=== PATIENT | male | born 1995 | race Caucasian/White ===

== ENCOUNTER 2018-08-11 22:14 | Emergency (ER) | payer SELFPAY ==
--- NOTE | 2018-08-11 23:02 | EDPHYS ---
Physician Documentation [facility] Name: Robert Fernandes Jr Age: 22 yrs Sex: Male : 1995 Arrival Date: 08/11/2018 Time: 22:18 Bed 17 Private MD: None, None ED Physician Ernesto Macedo HPI: 08/11 22:53 This 22 yrs old Male presents to ER via Ambulatory with complaints of jr8 Toothache. 22:53 The patient presents with pain. The problem is located in the mouth. Onset: The jr8 symptoms/episode began/occurred gradually, 4 month(s) ago, and became worse and became persistent. Duration: The symptoms are continuous. Modifying factors: The symptoms are alleviated by nothing, the symptoms are aggravated by air, chewing, cold fluids. Associated signs and symptoms: The patient has no apparent associated signs or symptoms. Severity of symptoms: At their worst the symptoms were moderate, in the emergency department the symptoms are unchanged. The patient has experienced a previous episode. The patient has been recently seen by a physician: the patient's primary care provider, with similar presenting complaints, was given a prescription for antibiotics, finished them about two weeks ago. Now has pain again. Still has not f/u with dentist . Historical: - Allergies: 22:38 No Known Allergies; rr5 - Home Meds: 22:38 None [Active]; rr5 - PMHx: 22:38 None; rr5 - PSHx: 22:38 None; rr5 - Immunization history:: Adult Immunizations up to date. - Social history:: Smoking status: Patient uses tobacco products, smokes one-half pack cigarettes per day, Patient uses alcohol, but reports only rare drinking. street drugs, marijuana. - Ebola Screening: : Patient negative for fever greater than or equal to 101.5 degrees Fahrenheit, and additional compatible Ebola Virus Disease symptoms Patient denies exposure to infectious person Patient denies travel to an Ebola-affected area in the 21 days before illness onset. ROS: 22:53 Eyes: Negative for injury, pain, redness, and discharge, Neck: Negative for injury, jr8 pain, and swelling, Cardiovascular: Negative for chest pain, palpitations, and edema, Respiratory: Negative for shortness of breath, cough, wheezing, and pleuritic chest pain, Abdomen/GI: Negative for abdominal pain, nausea, vomiting, diarrhea, and constipation, Back: Negative for injury and pain, MS/Extremity: Negative for injury and deformity, Skin: Negative for injury, rash, and discoloration, Neuro: Negative for headache, weakness, numbness, tingling, and seizure. 22:53 ENT: Positive for dental pain, Negative for drainage from ear(s), ear pain, rhinorrhea, sinus congestion, difficulty swallowing, difficulty handling secretions. Exam: 22:53 Eyes: Pupils equal round and reactive to light, extra-ocular motions intact. Lids and jr8 lashes normal. Conjunctiva and sclera are non-icteric and not injected. Cornea within normal limits. Periorbital areas with no swelling, redness, or edema. Neck: Trachea midline, no thyromegaly or masses palpated, and no cervical lymphadenopathy. Supple, full range of motion without nuchal rigidity, or vertebral point tenderness. No Meningismus. Cardiovascular: Regular rate and rhythm with a normal S1 and S2. No gallops, murmurs, or rubs. Normal PMI, no JVD. No pulse deficits. Respiratory: Lungs have equal breath sounds bilaterally, clear to auscultation and percussion. No rales, rhonchi or wheezes noted. No increased work of breathing, no retractions or nasal flaring. Abdomen/GI: Soft, non-tender, with normal bowel sounds. No distension or tympany. No guarding or rebound. No evidence of tenderness throughout. Back: No spinal tenderness. No costovertebral tenderness. Full range of motion. Skin: Warm, dry with normal turgor. Normal color with no rashes, no lesions, and no evidence of cellulitis. MS/ Extremity: Pulses equal, no cyanosis. Neurovascular intact. Full, normal range of motion. Neuro: Awake and alert, GCS 15, oriented to person, place, time, and situation. Cranial nerves II-XII grossly intact. Motor strength 5/5 in all extremities. Sensory grossly intact. Cerebellar exam normal. Normal gait. 22:53 ENT: Exam is negative for earache, ear discharge, TM abnormalities, nasal discharge, pharyngitis, exudate, Dental exam: dental caries, that is moderate, diffusely, pain, that is moderate, specifically in the lower left third molar (#17), lower left second molar (#18), lower left first molar (#19), lower right first molar (#30), lower right second molar (#31) and lower right third molar (#32). Vital Signs: 22:35 BP 121 / 88; Pulse 87; Resp 16; Temp 98.5; Pulse Ox 100% ; Weight 79.38 kg; Height 5 rr5 ft. 11 in. (180.34 cm); 22:35 Body Mass Index 24.41 (79.38 kg, 180.34 cm) rr5 MDM: 22:30 Patient medically screened. jr8 22:53 Data reviewed: vital signs, nurses notes, and as a result, I will discharge patient. jr8 Data interpreted: Pulse oximetry: on room air is 100 %. Interpretation: normal. Counseling: I had a detailed discussion with the patient and/or guardian regarding: the historical points, exam findings, and any diagnostic results supporting the discharge/admit diagnosis, the need for outpatient follow up, a dentist, to return to the emergency department if symptoms worsen or persist or if there are any questions or concerns that arise at home. 22:59 ED course: Patient recently finished antibiotics. No signs of abscess. No gum jr8 inflammation. Diffuse caries noted with decaying teeth. Exposed root canal present on right side from decayed tooth. Pain more then likely pulpitis and exposed nerve. No indication for antibiotics at this time. This was explained to patient and is good with this. Will attempt to move his dentist appointment up . Administered Medications: No medications were administered Disposition: 08/12 00:00 Co-signature as Attending Physician, Ernesto Macedo MD I agree with the assessment and kdr plan of care. Disposition: 08/11/18 23:02 Discharged to Home. Impression: Pulpitis, Dental root caries, Dental caries. - Condition is Stable. - Discharge Instructions: Dental Caries, Adult, Dental Pain, Root Canal. - Prescriptions for Ibuprofen 800 mg Oral Tablet - take 1 tablet by ORAL route every 12 hours As needed take with food; 20 tablet. Tylenol- Codeine #3 300-30 mg Oral Tablet - take 2 tablets by ORAL route every 6 hours As needed; 12 tablet. - Medication Reconciliation Form, Thank You Letter, Antibiotic Education, Prescription Opioid Use, Work release form form. - Follow up: Private Physician; When: 5 - 6 days; Reason: Recheck today's complaints, Continuance of care, Re-evaluation by your physician. - Problem is new. - Symptoms are unchanged. Signatures: Ernesto Macedo MD MD kdr Roszak, Josh, PA PA jr8 Russell Daniel RN RN jd3 Gene Miranda RN RN rr5 Corrections: (The following items were deleted from the chart) 08/11 23:14 23:02 08/11/2018 23:02 Discharged to Home. Impression: Pulpitis; Dental root caries; jd3 Dental caries. Condition is Stable. Forms are Medication Reconciliation Form, Thank You Letter, Antibiotic Education, Prescription Opioid Use. Follow up: Private Physician; When: 5 - 6 days; Reason: Recheck today's complaints, Continuance of care, Re-evaluation by your physician. Problem is new. Symptoms are unchanged. jr8
--- NOTE | 2018-08-11 23:02 | ER ---
Nurse's Notes [facility] Name: Robert Fernandes Jr Age: 22 yrs Sex: Male : 1995 Arrival Date: 08/11/2018 Time: 22:18 Bed 17 Private MD: None, None Diagnosis: Pulpitis;Dental root caries;Dental caries Presentation: 08/11 22:35 Presenting complaint: Patient states: had a toothache started yesterday impacted tooth. rr5 schedule for tooth extraction next month. had finish my antibiotic prescription. Transition of care: patient was not received from another setting of care. Onset of symptoms was August 10, 2018. Risk Assessment: Do you want to hurt yourself or someone else? Patient reports no desire to harm self or others. Initial Sepsis Screen: Does the patient meet any 2 criteria? No. Patient's initial sepsis screen is negative. Does the patient have a suspected source of infection? No. Patient's initial sepsis screen is negative. Care prior to arrival: None. 22:35 Method Of Arrival: Ambulatory rr5 22:35 Acuity: TIERA 4 rr5 Triage Assessment: 22:46 EENT: Reports pain in left jaw and right jaw. jd3 Historical: - Allergies: 22:38 No Known Allergies; rr5 - Home Meds: 22:38 None [Active]; rr5 - PMHx: 22:38 None; rr5 - PSHx: 22:38 None; rr5 - Immunization history:: Adult Immunizations up to date. - Social history:: Smoking status: Patient uses tobacco products, smokes one-half pack cigarettes per day, Patient uses alcohol, but reports only rare drinking. street drugs, marijuana. - Ebola Screening: : Patient negative for fever greater than or equal to 101.5 degrees Fahrenheit, and additional compatible Ebola Virus Disease symptoms Patient denies exposure to infectious person Patient denies travel to an Ebola-affected area in the 21 days before illness onset. Screenin:45 Abuse screen: Denies threats or abuse. Nutritional screening: No deficits noted. jd3 Tuberculosis screening: No symptoms or risk factors identified. Fall Risk Ambulatory Aid- None/Bed Rest/Nurse Assist (0 pts). Gait- Normal/Bed Rest/Wheelchair (0 pts) Mental Status- Oriented to own ability (0 pts). Total Jacinto Fall Scale indicates No Risk (0-24 pts). Assessment: 22:43 General: Appears in no apparent distress. uncomfortable, Behavior is calm, cooperative, jd3 appropriate for age. Pain: Complains of pain in right jaw and left jaw Quality of pain is described as aching, sharp. Neuro: Level of Consciousness is awake, alert, obeys commands, Oriented to person, place, time, situation, Appropriate for age. Cardiovascular: Capillary refill < 3 seconds Patient's skin is warm and dry. Respiratory: Airway is patent Respiratory effort is even, unlabored, Respiratory pattern is regular, symmetrical. GI: No signs and/or symptoms were reported involving the gastrointestinal system. : No signs and/or symptoms were reported regarding the genitourinary system. EENT: Oral mucosa is moist. Poor dentition noted. Dental caries noted in lower left second molar (#18) and lower right second molar (#31). Derm: Skin is intact, Skin is dry, Skin is normal, Skin temperature is warm. Musculoskeletal: Circulation, motion, and sensation intact. Range of motion: intact in all extremities. 23:13 Reassessment: Patient appears in no apparent distress at this time. Patient and/or jd3 family updated on plan of care and expected duration. Pain level reassessed. Patient is alert, oriented x 3, equal unlabored respirations, skin warm/dry/pink. Vital Signs: 22:35 BP 121 / 88; Pulse 87; Resp 16; Temp 98.5; Pulse Ox 100% ; Weight 79.38 kg; Height 5 rr5 ft. 11 in. (180.34 cm); 22:35 Body Mass Index 24.41 (79.38 kg, 180.34 cm) rr5 ED Course: 22:18 Patient arrived in ED. mr 22:18 None, None is Private Physician. mr 22:30 Sohail Connor PA is PHCP. jr8 22:30 Ernesto Macedo MD is Attending Physician. jr8 22:35 Arm band placed on. rr5 22:37 Triage completed. rr5 22:41 Russell Daniel, GREGORY is Primary Nurse. jd3 22:46 Patient has correct armband on for positive identification. Bed in low position. Call jd3 light in reach. Side rails up X 1. Adult w/ patient. 23:14 No provider procedures requiring assistance completed. Patient did not have IV access dennise during this emergency room visit. Administered Medications: No medications were administered Outcome: 23:02 Discharge ordered by . michelle 23:14 Discharged to home ambulatory, with family. dennise 23:14 Condition: stable 23:14 Discharge instructions given to patient, family, Instructed on discharge instructions, follow up and referral plans. medication usage, Demonstrated understanding of instructions, follow-up care, medications, Prescriptions given X 2. 23:14 Patient left the ED. dennise Signatures: Dipika Schultz KemiSohail pinon PA PA jr8 Davies, Jonathon, RN RN jd3 Gene Miranda RN RN rr5
== END 2018-08-11 23:14 | disposition home or self-care (01) ==
LOC: ER 22:14
DX: K04.01 Reversible pulpitis (principal); K02.7 Dental root caries; K02.9 Dental caries, unspecified; F17.210 Nicotine dependence, cigarettes, uncomplicated
CPT/HCPCS: 99282

== ENCOUNTER 2018-08-27 23:28 | Emergency (ER) | payer SELFPAY ==
--- NOTE | 2018-08-28 00:38 | EDPHYS ---
Physician Documentation [facility] Name: Robert Fernandes Jr Age: 22 yrs Sex: Male : 1995 Arrival Date: 08/27/2018 Time: 23:36 Bed 16 Private MD: ED Physician Cortes Arias HPI: 08/28 00:30 This 22 yrs old Male presents to ER via Ambulatory with complaints of Jaw cp Pain, Mouth Problem. 00:30 The patient presents with pain. The problem is located in the left lower jaw and right cp lower jaw. 00:31 Onset: The symptoms/episode began/occurred last month. Duration: The symptoms are cp continuous. Associated signs and symptoms: Pertinent negatives: dysphagia, fever, inability to eat, swelling, facial. Severity of symptoms: in the emergency department the symptoms are unchanged, despite home interventions. Historical: - Allergies: 08/27 23:44 No Known Allergies; bb - Home Meds: 23:44 None [Active]; bb - PMHx: 23:44 None; bb - PSHx: 23:44 None; bb - Immunization history:: Adult Immunizations up to date. - Social history:: Smoking status: Patient uses tobacco products, denies chronic smoking, but will smoke occasionally. - Ebola Screening: : No symptoms or risks identified at this time. ROS: 08/28 00:32 Eyes: Negative for injury, pain, redness, and discharge. cp Constitutional: Negative for body aches, chills, fever, poor PO intake. ENT: Positive for dental pain, Negative for drainage from ear(s), ear pain, difficulty swallowing, difficulty handling secretions. Neck: Negative for pain with movement, pain at rest, stiffness. Respiratory: Negative for cough, shortness of breath, wheezing. Abdomen/GI: Negative for abdominal pain, nausea, vomiting, and diarrhea, constipation. Skin: Negative for cellulitis, rash. Neuro: Negative for altered mental status, headache, weakness. All other systems are negative. Exam: 00:34 Head/Face: Normocephalic, atraumatic. cp 00:34 Constitutional: The patient appears in no acute distress, alert, awake, non-toxic, well developed, well nourished. 00:34 Eyes: Periorbital structures: appear normal, Conjunctiva: normal, no exudate, no injection, Sclera: no appreciated abnormality, Lids and lashes: appear normal, bilaterally. 00:34 ENT: External ear(s): are unremarkable, Ear canal(s): are normal, clear, TM's: bulging, is not appreciated, bilaterally, dullness, bilaterally, erythema, is not appreciated, bilaterally, Nose: is normal, Mouth: Lips: moist, Oral mucosa: pink and intact, moist, Gums: normal with healthy appearance, Tongue: is normal, abscess, is not appreciated, drooling, is not appreciated, Posterior pharynx: Airway: no evidence of obstruction, patent, Tonsils: are normal in appearance, Uvula: midline, swelling, is not appreciated, erythema, is not appreciated, exudate, is not appreciated, Dental exam: dental caries, that is mild, diffusely, fractured teeth are noted, not appreciated, gum swelling, not appreciated, missing teeth, not appreciated, pain, that is mild, specifically in the multiple teeth left lower and right lower jaw, Voice: is normal. 00:34 Neck: ROM/movement: is normal, is supple, without pain, no range of motions limitations, no nuchal rigidity, Lymph nodes: no appreciated lymphadenopathy. Vital Signs: 08/27 23:44 BP 127 / 73; Pulse 78; Resp 16 S; Temp 98.1(O); Pulse Ox 100% on R/A; Weight 79.38 kg bb (R); Height 6 ft. 0 in. (182.88 cm) (R); Pain 10/10; 23:44 Body Mass Index 23.73 (79.38 kg, 182.88 cm) bb MDM: 08/28 00:18 Patient medically screened. [facility] 00:37 Data reviewed: vital signs, nurses notes, old medical records, and as a result, I will cp discharge patient. 00:37 Differential diagnosis: dental caries, gingivitis, dental abscess, pericoronitis. cp Counseling: I had a detailed discussion with the patient and/or guardian regarding: the historical points, exam findings, and any diagnostic results supporting the discharge/admit diagnosis, the need for outpatient follow up, for definitive care, a dentist, to return to the emergency department if symptoms worsen or persist or if there are any questions or concerns that arise at home. Administered Medications: No medications were administered Disposition: 08/28/18 00:38 Discharged to Home. Impression: Dental pain. - Condition is Stable. - Discharge Instructions: Dental Pain, Form - Excuse from Work, School, or Physical Activity. - Prescriptions for Amoxicillin 875 mg Oral Tablet - take 1 tablet by ORAL route every 12 hours for 10 days; 20 tablet. Naprosyn 500 mg Oral Tablet - take 1 tablet by ORAL route 2 times per day take with food; 20 tablet. - Work release form, Medication Reconciliation Form, Thank You Letter, Antibiotic Education, Prescription Opioid Use form. - Follow up: Private Physician; When: 1 - 2 days; Reason: Recheck today's complaints. - Problem is an ongoing problem. - Symptoms are unchanged. Addendum: 08/29/2018 11:18 Co-signature as Attending Physician, Cortes Arias MD I agree with the assessment and c cancino plan of care. Signatures: Cortes Arias MD MD [facility] Chapis Glover, RN RN bb Chelita Hendrix RN RN ed1 Cortes Flores PA PA cp Corrections: (The following items were deleted from the chart) 08/28 00:47 00:38 08/28/2018 00:38 Discharged to Home. Impression: Dental pain. Condition is ed1 Stable. Forms are Medication Reconciliation Form, Thank You Letter, Antibiotic Education, Prescription Opioid Use. Follow up: Private Physician; When: 1 - 2 days; Reason: Recheck today's complaints. Problem is an ongoing problem. Symptoms are unchanged. cp
--- NOTE | 2018-08-28 00:38 | ER ---
Nurse's Notes [facility] Name: Robert Fernandes Jr Age: 22 yrs Sex: Male : 1995 Arrival Date: 08/27/2018 Time: 23:36 Bed 16 Private MD: Diagnosis: Dental pain Presentation: 08/27 23:42 Presenting complaint: Patient states: he was seen here a couple of weeks ago for a bb toothache and has not been able to afford the dentist yet so pain is worse again and now is painful on right and left lower jaw. Transition of care: patient was not received from another setting of care. Onset of symptoms was August 27, 2018. Risk Assessment: Do you want to hurt yourself or someone else? Patient reports no desire to harm self or others. Initial Sepsis Screen: Does the patient meet any 2 criteria? No. Patient's initial sepsis screen is negative. Does the patient have a suspected source of infection? No. Patient's initial sepsis screen is negative. Care prior to arrival: None. 23:42 Method Of Arrival: Ambulatory bb 23:42 Acuity: TIERA 4 bb Triage Assessment: 23:48 General: Appears in no apparent distress. comfortable, Behavior is calm, cooperative, cc3 appropriate for age. Pain: Complains of pain in jaw. Historical: - Allergies: 23:44 No Known Allergies; bb - Home Meds: 23:44 None [Active]; bb - PMHx: 23:44 None; bb - PSHx: 23:44 None; bb - Immunization history:: Adult Immunizations up to date. - Social history:: Smoking status: Patient uses tobacco products, denies chronic smoking, but will smoke occasionally. - Ebola Screening: : No symptoms or risks identified at this time. Screenin:48 Abuse screen: Denies threats or abuse. Denies injuries from another. Nutritional cc3 screening: No deficits noted. Tuberculosis screening: No symptoms or risk factors identified. Fall Risk None identified. Assessment: 08/28 00:45 Reassessment: Patient appears in no apparent distress at this time. Patient and/or cc3 family updated on plan of care and expected duration. Pain level reassessed. Patient is alert, oriented x 3, equal unlabored respirations, skin warm/dry/pink. Patient discharged home, left ER vitally stable and ambulatory. Vital Signs: 03/04 23:44 BP 127 / 73; Pulse 78; Resp 16 S; Temp 98.1(O); Pulse Ox 100% on R/A; Weight 79.38 kg bb (R); Height 6 ft. 0 in. (182.88 cm) (R); Pain 10/10; 23:44 Body Mass Index 23.73 (79.38 kg, 182.88 cm) bb ED Course: 23:36 Patient arrived in ED. es 23:44 Triage completed. bb 23:44 Arm band placed on Patient placed in an exam room, on a stretcher, on pulse oximetry. bb Family accompanied patient. 23:48 Abi Myers is Primary Nurse. cc3 23:48 Patient has correct armband on for positive identification. Bed in low position. Call cc3 light in reach. Side rails up X 1. Pulse ox on. NIBP on. 0305 00:17 Cortes Flores PA is PHCP. cp 00:17 Cortes Arias MD is Attending Physician. cp 00:47 No provider procedures requiring assistance completed. Patient did not have IV access ed1 during this emergency room visit. Administered Medications: No medications were administered Outcome: 00:38 Discharge ordered by . cp 00:46 Discharged to home ambulatory. ed1 00:46 Condition: good 00:46 Discharge instructions given to patient, Instructed on discharge instructions, follow up and referral plans. medication usage, Demonstrated understanding of instructions, follow-up care, medications, Prescriptions given X 2. 00:47 Patient left the ED. ed1 Signatures: Eli Kaur Brenda RN RN bb Chelita Hendrix RN RN ed1 Cortes Flores PA PA cp Abi Myers cc3
== END 2018-08-28 00:47 | disposition home or self-care (01) ==
LOC: ER 23:28
DX: K08.89 Other specified disorders of teeth and supporting structures (principal); Z72.0 Tobacco use
CPT/HCPCS: 99283